=== PATIENT | female | born 1960 | race Caucasian/White ===

== ENCOUNTER 2023-11-30 21:53 | Emergency (ER) | payer BC ==
[2023-11-30] MEDS: HYDROmorphone 1 MG/ML Syringe IM ONE (22:49)
[2023-12-01] MEDS: Ondansetron 4 MG Tab.DIS PO ONE (00:39)
== END 2023-12-01 01:43 | disposition home or self-care (01) ==
LOC: JP.ED 21:53
DX: S83.92XA Sprain of unspecified site of left knee, initial encounter (principal); I10 Essential (primary) hypertension; Z88.5 Allergy status to narcotic agent; Z88.8 Allergy status to other drugs, medicaments and biological substances; Z79.899 Other long term (current) drug therapy; W18.39XA Other fall on same level, initial encounter; Y93.K1 Activity, walking an animal
CPT/HCPCS: 73564; 96372; 99283; J1170; Q0162